=== PATIENT | female | born 1980 | race Caucasian/White ===

== ENCOUNTER 2017-04-01 08:30 | Day surgery (SDC) | payer OTHER ==
[~2017-04-01 08:30] MED LIST: ACETAMINOPHEN 500 MG TABLET PO PRN; HYDROmorphone HCL 2 MG/ML VIAL IV PRN; MAG HYDROX/ALUMINUM HYD/SIMETH 30 ML UDC PO PRN; MAGNESIUM HYDROXIDE 30 ML UDC PO PRN; ONDANSETRON HCL/PF 2 MG/ML VIAL IV PRN; PROMETHAZINE HCL 25 MG in DEXTROSE 5 % IN WATER 50 ML IV PRN; RINGERS SOLUTION,LACTATED 1,000 ML IV PRN; ZOLPIDEM TARTRATE 5 MG TABLET PO PRN; ceFAZolin SODIUM 1 GM VIAL IV PRN; diphenhydrAMINE HCL 50 MG/ML VIAL IV PRN; oxyCODONE HCL/ACETAMINOPHEN 1 TAB TABLET PO PRN
--- OUTSIDE RECORDS SUMMARY | 2017-04-01 08:34 | XMS REPORT | Continuity of Care Document ---
:1980 Author Organization [facility] [place] [address] Care Team Providers Name Role Phone Unavailable Primary Care Provider Unavailable Source Comments This disclosure is being made pursuant to the [employer] program and maynot contain all information available regarding this patient.[facility] Active Allergies and Adverse Reactions Not on File Current Medications Be aware that medications may not be up to date as of this document. Alwaysverify current medications with the patient. Not on file Active Problems Not on file Social History Tobacco Use Types Packs/Day Years Used Date Never Assessed Plan of Care Health Maintenance Due Date Last Done Comments Retired-Pertussis Vaccine Adult 2000 Retired-Tetanus Vaccine Adult 2000 Pap Smear 2002 Retired-INFLUENZA VACCINE 06/10/2015 Results from Last 3 Months Not on file
[2017-04-01] MEDS ORDERED: RINGERS SOLUTION,LACTATED 1,000 ML IV ONE ×3 (09:20→13:10)
--- NOTE | 2017-04-01 11:21 | OR ---
Operative Report - Dictated Report Narrative: Date: 04/01/2017 Physician: Shorty Calvert M.D. Tax Revenue Officer: Jose Morales PA-C Preoperative diagnosis: Right Shoulder supraspinatus rotator cuff tear, acromioclavicular arthrosis Postoperative diagnosis: Right Shoulder supraspinatus rotator cuff tear, acromioclavicular arthrosis Procedure: Right shoulder arthroscopy with mini open rotator cuff repair, Martin procedure Anesthesia: General plus regional Complications: None Estimated blood loss: Minimal Specimens: Bone for disposal Retained implants: [employer] 4.5 mm peek helicoil anchor 1 footprint anchor 2 Drains: None Indications: Mrs. Shin Is a 36 year-old female who has been followed in my clinic with complaints of shoulder pain consistent rotator cuff tear. Physical exam and diagnostic imaging were consistent with his complaints and concern for full- thickness rotator cuff tear. Conservative measures have failed including, but not limited to, passage of time, activity modification, medications, physical therapy/home exercise program, or injections. The risks, benefits, and alternatives were discussed in clinic. The risks being , bleeding, infection, blood clots, nerve, tendon, ligament, blood vessel injury, persistent pain, arthrosis, stiffness, need for prolonged therapy, need for additional procedures, and persistent symptoms. Consent was obtained in the clinic. Procedure: After marking the correct extremity in the preoperative holding area, a timeout was performed in the operating room. IV antibiotics consisting of Ancef were administered prior to the procedure. A general followed by regional anesthetic was induced by the nurse steeplechase jockey. This was in the supine position, then the patient was transitioned to a beachchair position with all bony prominences well-padded, head in neutral, the nonoperative arm well supported, and the legs padded with SCDs in place. The operative shoulder was then prepped and draped in a standard sterile fashion. Preoperatively the shoulder had full passive range of motion, and no gross instability. After marking out the bony landmarks , saline was infused into the joint through a posterior lateral portal site. A ashlee incision was made, and the blunt trocar and cannula was introduced into the shoulder joint. An accessory portal was placed in the rotator cuff interval using a spinal needle for guidance. Upon initial evaluation, the biceps tendon showed no tendinopathy. The middle glenohumeral ligament was intact and unremarkable. Subscapularis tendon was unremarkable. The glenoid showed no arthrosis or Bankart. The humeral head articular surface showed no arthrosis or Hill-Sachs. The anterior labrum was intact. The superior labrum was intact. The pouch was unremarkable. The posterior labrum was unremarkable. The supraspinatus tendon was noted to be torn from just behind the biceps to approximately centimeter posteriorly full-thickness in nature. The infraspinatus tendon was unremarkable. Utilizing a lateral portal of the rotator cuff tendon and tuberosity were debrided of its soft tissues. Attention was then turned to the subacromial space. Subacromial bursectomy was performed utilizing the prior portals. The coracoacromial ligament unremarkable. The bursal side of the rotator cuff demonstrated a full- thickness tear as identified intra-articularly. The acromial arch was unremarkable. Based on the arthroscopic findings, as well as exam and radiographic findings, it was elected to proceed with a mini open rotator cuff repair. A longitudinal incision centered over the previously identified rotator cuff tear was made just off the edge of the acromion. This was approximately 7 centimeters in length. The deltoid fascia was split sharply in line with its fibers, and blunt dissection was carried through the deltoid muscle. Any remaining subacromial bursal tissue was debrided in order to expose the underlying rotator cuff tear. The rotator cuff tear appeared to be transverse orientation. The tuberosity was debrided of its soft tissues producing a bleeding bed for the tendon to be secured to. 1 4.5 mm PEEK helicoil anchor was placed just off the articular surface of the humeral head. A series of horizontal mattress sutures were placed at the prepared edge of the rotator cuff. This allowed for a tension-free return of the tendon to the greater tuberosity. The sutures were then passed longitudinally into 1 4.5 mm PEEK footprint anchor, and the second anchor malfunction after inserting but was buried below the bone. This was performed and a suture bridge technique. This gave good overall compression to the rotator cuff at the insertion site. The shoulders place a range of motion and had no lift off of the repair site as well as no crepitance or signs of impingement. Full passive range of motion was able to be obtained. Attention was then turned to the distal clavicle. A longitudinal incision was made over the acromioclavicular joint. This was sharply dissected down to the chromic clavicular capsule. Cautery was utilized for hemostasis. A longitudinal capsulotomy was made and elevated off the anterior posterior aspects of the distal clavicle. There is notable hypertrophic bone and loss of joint space between the acromion and clavicle. Protecting the surrounding soft tissues, an oscillating saw was utilized in order to resect approximately 7-10 mm of bone from the distal clavicle. The remaining clavicle was stable after removing this. The shoulders place a range of motion and showed no remaining impingement between the acromion and the clavicle. Wounds were then thoroughly irrigated. The capsule was closed with interrupted 0 Vicryl to subcutaneous tissue with 3-0 Vicryl. Skin was closed with 4-0 nylon. Once it was felt that the rotator cuff was adequately repaired, the wounds were thoroughly irrigated. 0 Vicryl was utilized in order to repair the deltoid fascia. 3-0 Vicryl was placed in the subcutaneous tissue. The rotator cuff incision as well as the portal sites were closed with interrupted nylon. Dressings consisting of Xeroform, 4 x 4, ABD, soft roll, and tape were applied. All sponge, needle, blade, and instrument counts were correct prior to closing the wounds. The patient was awoken and transferred to the postanesthesia care unit in stable condition.
[2017-04-01 14:07] VITALS: BP 133/85
[2017-04-01] MEDS ORDERED: SENNOSIDES/DOCUSATE SODIUM 1 TAB TABLET PO SCH (21:00)
== END 2017-04-01 08:31 | disposition home or self-care (01) ==
LOC: AMB 08:30
PROVIDERS: ATTEND Orthopaedic Surgery
PROC: 0LQ10ZZ Repair Right Shoulder Tendon, Open Approach (ICD-10-PCS; 2017-04-01)
PROC: 0PB90ZZ Excision of Right Clavicle, Open Approach (ICD-10-PCS; 2017-04-01)
PROC: 0RBJ4ZZ Excision of Right Shoulder Joint, Percutaneous Endoscopic Approach (ICD-10-PCS; principal; 2017-04-01 10:00)
DX: M75.101 Unspecified rotator cuff tear or rupture of right shoulder, not specified as traumatic (principal); M19.011 Primary osteoarthritis, right shoulder; F32.9 Major depressive disorder, single episode, unspecified; F41.0 Panic disorder [episodic paroxysmal anxiety]; F98.8 Other specified behavioral and emotional disorders with onset usually occurring in childhood and adolescence; F17.210 Nicotine dependence, cigarettes, uncomplicated; Z68.42 Body mass index [BMI] 45.0-49.9, adult

== ENCOUNTER 2017-08-19 17:13 | Emergency (ER) | payer OTHER ==
[2017-08-19 17:19] VITALS: BP 140/94
[2017-08-19] MEDS ORDERED: BENZONATATE 100 MG CAPSULE PO ONE ×2 (17:33→17:37)
[2017-08-19] MEDS ORDERED: ALBUTEROL SULFATE 2.5 MG/0.5 ML VIAL.NEB IH ONE ×2 (17:34→17:37)
--- NOTE | 2017-08-19 17:47 | ERNOTE ---
Time Seen by Provider: 08/19/17 17:15 Stated Complaint: COUGH.ABD PAIN Presenting Symptoms:: cough Source: patient Exam Limitations: no limitations Immunizations: IMMUNIZATION HX Immunizations Up to Date Yes History of Influenza Vaccine No Allergies/Adverse Reactions: Allergies cephalexin [From Keflex] Allergy (Verified 08/19/17 17:19) Home Medications: HOME MEDICATIONS ALPRAZolam [Xanax] 0.5 mg PO HS 08/19/17 [Last Taken Unknown] Albuterol Sulfate [Proair Hfa] 2 puff IH QID PRN 08/19/17 [Last Taken Unknown] Benzonatate [Tessalon] 200 mg PO TID PRN #30 cap 08/19/17 [Last Taken Unknown] Levothyroxine Sodium [Synthroid] 100 mcg PO DAILY 08/19/17 [Last Taken Unknown] PARoxetine HCL [Paxil] 20 mg PO DAILY 08/19/17 [Last Taken Unknown] - History of Present Ilness Narrative: Patients has a slight chronic cough since she is a smoker. The cough has been more severe for about eight days. She saw her doctor a week ago and was started on a zpack for ear infection and bronchitis. For four days now she has had right sided abdominal pain when coughing only, a mild ache in between coughing episodes. The pain is worse when coughing standing up, better when holding pressure on the area while coughing. She denies any nausea, vomiting, has chronic loose BM since having her gallbladder out. No abdominal pain with deep breath or walking Timing: intermittent Frequency/Possible Cause: Reports: occasional episodes, smoke exposure Modifying Factors - Improves: Reports: albuterol, rest Modifying Factors - Worsens: Reports: activity Associated Symptoms: Denies: chest pain/soreness, cough, shortness of breath, nasal congestion, nasal drainage, earache Prior Treatment: Reports: recently seen, treated by physician Review of Systems - Review of Systems Constitutional: Present: recent illness. Absent: fever ENT: Absent: nose congestion, sore throat Respiratory: Present: See HPI, cough. Absent: shortness of breath Cardiology: Absent: chest pain Gastrointestinal/Abdominal: Present: See HPI, abdominal pain. Absent: nausea, vomiting, diarrhea Genitourinary: Present: no symptoms reported Musculoskeletal: Present: no symptoms reported Skin: Present: no symptoms reported Neurological: Present: no symptoms reported - Patient's Past Medical History Patient History - Medical: Anxiety, Depression, Hypothyroidism, Other Patient History - Cardiac/Respiratory: No pertinent hx Patient History - Cancer: No Hx of Cancer Patient History - Surgical Procedures: Cholecystectomy, D & C, Other Patient History - Other: None - Family History Father Family History - Medical: , No pertinent hx Family History - Cardiac/Respiratory: No pertinent hx Family History - Cancer: Pancreatic Mother Family History - Medical: , No pertinent hx Family History - Cardiac/Respiratory: No pertinent hx Family History - Cancer: Breast - Social History Living Situations: home Abuse History: No History of abuse Psych History: Hx of Anxiety, Hx of Depression Cigarettes Packs Per Day: 0.5 Alcohol Use: none Drug Use: none - Immunizations Immunizations Up to Date: Yes History of Influenza Vaccine: No Physical Exam - Physical Exam General Appearance: Present: wd/wn, alert, no apparent distress, obese Respiratory: Present: no respiratory distress, normal breath sounds, no accessory muscle use, lungs clear Cardiovascular/Chest: Present: regular rate, rhythm, no murmur Gastrointestinal/Abdominal: Present: normal bowel sounds, nondistended, soft, other - patient coughs frequently and is obviousely uncomfortable with it, better with holding pressure on right midabdomen, exam is limited due to signficant obesity, possible bulge felt when patient is coughing, mild tenderness in between. Absent: distended, guarding, rebound Neurological Exam: Present: alert, oriented, normal mood/affect Skin Exam: Present: normal color, warm/dry ED Progress - Vital Signs Patient's Vital Signs:: I have reviewed the patient's vital signs. Vital Signs: Vital Signs 08/19/17 17:16 Temperature 36.5 C Pulse Rate 96 Respiratory 12 Rate Blood Pressure 140/94 O2 Sat by Pulse 97 Oximetry - Progress/Reassessment Chief Complaint: Cough Progress Note-Subjective: 08/19/17 17:42 discussed that hernia most likely diagnosis, as no significant pain when not coughing unlikely to be incarcerated, imaging would be of questionable use at this time but the focus is on getting her cough controlled. 08/19/17 18:12 patient feeling much better after breathing treatment, less cough, discussed need to use inhaler with spacer Departure Clinical Impression: Bronchitis Abdominal pain Qualifiers: Abdominal location: unspecified location Qualified Code(s): R10.9 - Unspecified abdominal pain - Departure Disposition: Home self-care Condition: Good Instructions: Acute Bronchitis, [id number], Abdominal Pain, Adult, Easy-to- Read Additional Instructions: your abdominal pain is most likely due to a hernia the focus at this point is to try to get your cough under controll use the inhaler with a spacer if the pain persists even when you are not coughing and you have pain with walking or deep breath return to the ER, otherwise follow up with your doctor after the weekend Referrals: Franco Cabezas DO [Primary Care Provider] - Prescriptions: Benzonatate [Tessalon] 200 mg PO TID PRN #30 cap PRN Reason: Cough
== END 2017-08-19 18:17 | disposition home or self-care (01) ==
LOC: ER 17:13
DX: J40 Bronchitis, not specified as acute or chronic (principal); R10.9 Unspecified abdominal pain